=== PATIENT | female | born 1950 | race Two or more races ===

== ENCOUNTER 2022-03-02 07:53 | Outpatient (CLI) | payer OTHER ==
[~2022-03-02 07:53] MED LIST: DIOVAN HCT 80-11 TAB; EFFEXOR XR75 MG; RESTORIL15 MG; SYNTHROID75 MCG
== END 2022-03-02 08:17 | disposition home or self-care (01) ==
LOC: MAMO-SONO 07:53
PROVIDERS: ATTEND Internal Medicine
DX: Z12.31 Encounter for screening mammogram for malignant neoplasm of breast (principal); N60.11 Diffuse cystic mastopathy of right breast; N60.12 Diffuse cystic mastopathy of left breast; R10.84 Generalized abdominal pain

== ENCOUNTER 2022-03-17 07:34 | Outpatient (CLI) | payer OTHER | END 2022-03-17 07:51 | disposition home or self-care (01) | LOC: MRI 07:34 | PROVIDERS: ATTEND Internal Medicine | DX: R10.84 Generalized abdominal pain (principal); K80.50 Calculus of bile duct without cholangitis or cholecystitis without obstruction | CPT/HCPCS: 74181 ==

== ENCOUNTER 2023-01-12 08:19 | Outpatient (CLI) | payer OTHER | END 2023-01-12 08:27 | disposition home or self-care (01) | LOC: SONOGRAMA 08:19 | DX: K80.20 Calculus of gallbladder without cholecystitis without obstruction (principal) ==

== ENCOUNTER 2025-01-13 13:54 | Outpatient (CLI) | payer OTHER | END 2025-01-13 14:02 | disposition home or self-care (01) | LOC: SONOGRAMA 13:54 | PROVIDERS: ATTEND Internal Medicine | DX: G56.03 Carpal tunnel syndrome, bilateral upper limbs (principal) ==